=== PATIENT | male | born 1945 | race Caucasian/White ===

== ENCOUNTER → 2016-11-07 | Outpatient (CLI) | payer BC ==
[~2016-11-07] MED LIST: ADVIN25050 INH; ASPEC81 PO; ATOR-26 PO; CALC1TAB9 PO; CLOP1TAB15 PO; CLZ750 PO; CNT PO; INSDGI SQ; METF1000 PO; METO100T7 PO; MRC50 PO; NTRGSL/4 UT; NVLGI SQ; OXGN; OXYC-57 PO; PERFLUTREN LIPID MICROSPHERE (DEFINITY) IV ONE; REGADENOSON 0.4 MG/5 ML SYR ONE; VALS160T60 PO
--- NOTE | 2016-11-08 02:43 | MYOCARDIAL PERFUSION SCAN ---
PRIMARY CARE PHYSICIAN: Dr. Aaron. ORDERING PHYSICIAN: Dr. Siddiqi. TIME: 2119. PROCEDURES: 1. Myocardial perfusion study performed in multiple views/images. 2. Lexiscan stress ECG. INDICATIONS: 1. CAD. 2. Dyspnea with exertion. 3. Edema. CONSENT: Informed written consent was obtained. ELECTROCARDIOGRAM AND VITALS: Baseline ECG demonstrated sinus rhythm with PACs and sinus arrhythmia. Anterior ST/T wave abnormality with deep T-wave inversions. Inferior T-wave inversions. Lateral T-wave inversions. Lexiscan ECG demonstrated no significant ST change. No arrhythmia. No significant pause. No chest pain or shortness of breath reported. There was some lightheadedness and a headache. Maximum heart rate was 91 beats per minute, representing 61% maximum predicted heart rate. Resting blood pressure was 121/72 mmHg. Minimum blood pressure was 97/62 mmHg and maximum was 130/60 mmHg. PROCEDURAL DETAILS: For the stress portion of the study, Lexiscan 0.4 mg was intravenously administered over 10-15 seconds, followed by saline flush. This was followed by 33.1 mCi of technetium-99m Cardiolite at 11:32 a.m. on 11/07/2016. Thirty minutes following the injection, imaging of the heart was performed in multiple projections. For the rest portion of the study, 10.8 mCi of technetium-99m Cardiolite was injected intravenously at 9:50 a.m. on the same day. One hour following the injection, imaging of the heart was performed in the same projections. FINDINGS: Rotating raw imaging demonstrated no significant motion artifact. The heart size appeared normal. No significant lung uptake. Myocardial perfusion demonstrated a small area of mildly reduced uptake in the inferolateral wall from base to mid left ventricle, which was predominantly fixed with normal wall motion, suggesting possible attenuation artifact. Wall motion was normal. Ejection fraction was 67%. There was no significant transient ischemic dilation. IMPRESSION: 1. There were no ischemic changes suggested with this pharmacologic myocardial perfusion study. 2. Small inferolateral fixed defect may be due to attenuation artifact, given normal wall motion. Cannot rule out small infarct. 3. Normal left ventricular systolic function. Ejection fraction 67%. 4. No chest pain. 5. Normal wall motion. 6. Indeterminate and nondiagnostic Lexiscan ECG.
--- NOTE | 2016-11-09 17:35 | ECHOCARDIOGRAM REPORT ---
*NOTICE TO RECEIVING REPUBLICAN AGENCY This information is strictly Confidential and protected under [place] law. [place] law prohibits you from making any further disclosure of this information unless further disclosure is expressly permitted by the written consent of the person to whom it pertains or is authorized by law. A general authorization for the release of medical or other information is not sufficient for this purpose. Hospital accepts no responsibility if the information is made available to any other person, INCLUDING THE PATIENT. Interpretation Summary * Name: REHAN WHITE Study Date: 11/07/2016 12:40 PM BP: 136/60 mmHg * Patient Location: [facility] HR: 80 * : 1945 (M/d/yyy) Gender: Male Height: 63 in * Age: 71 yrs Ethnicity: CA Weight: 245 lb * Ordering Physician: David Siddiqi MD * Referring Physician: David Siddiqi * Performed By: Shalini Gutierres * * Reason For Study: CAD * BSA: 2.1 m2 * -- Conclusions -- * 1. Normal left ventricular size with hyperdynamic systolic function. EF > 75%. No regional wall motion abnormalities. No significant left ventricular hypertrophy. * Diastolic dysfunction, Grade II (pseudonormalization pattern). * 2. No significant valvular abnormalities visualized. * 3. Technically difficult study, enhanced with IV Definity. * 4. No significant change from prior study on 02/22/2012. Procedure Details * A complete two-dimensional transthoracic echocardiogram was performed (2D, M-mode, Doppler and color flow Doppler). * The study was technically difficult. * There were technical limitations due to patient'sbody habitus * A contrast injection of Definity was performed to improve assessment of LV function. * Contrast was injected into an intravenous site in the left arm. * One vial of Definity ultrasound contrast was diluted in normal saline to a total volume of 10 ml. A total of '4' ml of solution was administered during imaging. * Lot # [id number] of Definity utilized for procedure. * Expiration date 09/29. * The attending nurse who injected the contrast agent was SERGE MILLIGAN RN. Left Ventricle * Normal left ventricular size with hyperdynamic systolic function. EF > 75%. No regional wall motion abnormalities. No significant left ventricular hypertrophy. Right Ventricle * The right ventricle is not well visualized. * The right ventricle is grossly normal size. * The right ventricular systolic function is normal as assessed by tricuspid annular plane systolic excursion (TAPSE) (normal >1.5 cm). * The right ventricular systolic function is normal. Atria * Borderline left atrial enlargement. * Right atrium not well visualized. Mitral Valve * The mitral valve is grossly normal. * There is no mitral valve stenosis. * Significant mitral regurgitation is absent. Tricuspid Valve * The tricuspid valve is not well visualized. * There is no tricuspid stenosis. * Significant tricuspid regurgitation is absent. Aortic Valve * The aortic valve is normal in structure and function. * No hemodynamically significant valvular aortic stenosis. * There is no significant aortic regurgitation. Pulmonic Valve * The pulmonary valve is inadequately visualized, but the Doppler data is adequate for interpretation. * There is no pulmonic valvular stenosis. * There is no significant pulmonary regurgitation. Great Vessels * The aortic root is normal size. * Ascending aorta of normal dimension Pericardium/Pleural * There is no pericardial effusion. Great Vessels * Normal inferior vena cava size and collapsability with sniff indicates a normal right atrial pressure of 3 mmHg Left Ventricular Diastolic Function * Diastolic dysfunction, Grade II (pseudonormalization pattern). MMode 2D Measurements and Calculations IVSd 0.97 cm IVSs 1.2 cm LVIDd 4.8 cm LVIDs 2.5 cm LVPWd 0.84 cm LVPWs 1.1 cm IVS/LVPW 1.1 FS 47.5 % EDV(Teich) 106.4 ml ESV(Teich) 22.5 ml EF(Teich) 78.8 % EDV(cubed) 109.1 ml ESV(cubed) 15.8 ml EF(cubed) 85.5 % % IVS thick 28.5 % % LVPW thick 25.3 % LV mass(C)d 147.6 grams LV mass(C)dI 70.0 grams/m\S\2 LV mass(C)s 79.8 grams LV mass(C)sI 37.9 grams/m\S\2 CO(Teich) 6.5 l/min CI(Teich) 3.1 l/min/m\S\2 SV(Teich) 83.9 ml SI(Teich) 39.8 ml/m\S\2 CO(cubed) 7.3 l/min CI(cubed) 3.5 l/min/m\S\2 SV(cubed) 93.3 ml SI(cubed) 44.3 ml/m\S\2 Ao root diam 3.7 cm Ao root area 10.8 cm\S\2 ACS 0.94 cm asc Aorta Diam 3.5 cm LVAd ap4 27.3 cm\S\2 LVLd ap4 8.8 cm EDV(MOD-sp4) 72.0 ml EDV(sp4-el) 101.6 ml LVAs ap4 13.8 cm\S\2 LVLs ap4 6.9 cm LVAd ap2 22.2 cm\S\2 LVLd ap2 8.1 cm LVAs ap2 10.3 cm\S\2 LVLs ap2 5.9 cm Doppler Measurements and Calculations MV E max jacquie 71.6 cm/sec MV A max jacquie 38.8 cm/sec MV E/A 1.8 MV V2 max 86.3 cm/sec MV max PG 3.0 mmHg MV V2 mean 51.0 cm/sec MV mean PG 1.2 mmHg MV V2 VTI 22.8 cm MV dec time 0.20 sec Ao V2 max 138.1 cm/sec Ao max PG 7.6 mmHg Ao max PG (full) 3.6 mmHg Ao V2 mean 88.2 cm/sec Ao mean PG 3.7 mmHg Ao mean PG (full) 1.5 mmHg Ao V2 VTI 27.6 cm LV V1 max PG 4.1 mmHg LV V1 mean PG 2.2 mmHg LV V1 max 100.8 cm/sec LV V1 mean 67.8 cm/sec LV V1 VTI 22.7 cm SV(Ao) 298.8 ml SI(Ao) 141.8 ml/m\S\2 TV E max jacquie 55.5 cm/sec PA V2 max 75.0 cm/sec PA max PG 2.3 mmHg
== END | disposition home or self-care (01) ==
LOC: C.NUCL 08:54
PROVIDERS: ATTEND Internal Medicine Cardiovascular Disease
DX: I25.10 Atherosclerotic heart disease of native coronary artery without angina pectoris (principal); R06.09 Other forms of dyspnea; R60.9 Edema, unspecified; E78.5 Hyperlipidemia, unspecified; I10 Essential (primary) hypertension

== ENCOUNTER → 2016-12-04 | Outpatient (CLI) | payer BC ==
[~2016-12-04] MED LIST changes: -PERFLUTREN LIPID MICROSPHERE (DEFINITY) IV ONE; -REGADENOSON 0.4 MG/5 ML SYR ONE
[2016-12-04 14:41] LABS: HEMATOCRIT 43.6 % (42-52)
[2016-12-04 14:56] LABS: ESTIMATED AVERAGE GLUCOSE 163 mg/dl; HA1C FLAG Normal (Normal)
[2016-12-04 15:01] LABS: THYROID STIMULATING HORMONE 4.18 uIu/ml (0.300-4.500)
--- NOTE | 2016-12-10 13:46 | CODING QUERY MEDICAL NECESSITY ---
SUPPORTING DIAGNOSIS NEEDED A supporting diagnosis is required for the test/procedure performed on this patient in order for us to be reimbursed by the patient's insurance. Please provide a supporting diagnosis for the following test/procedure listed below next to the test name along with your signature. *If there is no additional diagnosis for this patient that would support the following test/procedure please document that below next to the test/procedure. Test(s)/Procedure(s) that require a supporting diagnosis: DOS 12/04 * Vitamin D DIAGNOSIS: * Vitamin B12 DIAGNOSIS: Provider Signature: Date: Thank you Adelaida Huber Health Information Management Once completed, please kindly fax back to [phone] For questions please call [phone]
== END | disposition home or self-care (01) ==
LOC: C.RAD1850 12:43
PROVIDERS: ATTEND Internal Medicine Endocrinology, Diabetes & Metabolism
DX: E11.9 Type 2 diabetes mellitus without complications (principal); M79.1 Myalgia; E53.8 Deficiency of other specified B group vitamins

== ENCOUNTER → 2016-12-05 | Outpatient (CLI) | payer BC ==
--- NOTE | 2016-12-05 10:39 | DIAGNOSTIC IMAGING REPORT ---
CHEST 2 VIEWS ROUTINE CLINICAL HISTORY: R05 [id number] dyspnea COMPARISON STUDY: 09/30/2016 FINDINGS: Mild cardia megaly. Pulmonary vascular congestion. Diaphragms are somewhat flattened.] Left lateral costophrenic angle. IMPRESSION: Pulmonary vascular congestion Electronically signed by: Ben Calix M.D. 12/05/2016 10:38 AM Dictated Date/Time: 12/05/2016 10:37 AM
== END | disposition home or self-care (01) ==
LOC: C.RAD1850 10:29
PROVIDERS: ATTEND Internal Medicine Infectious Disease
DX: R05 Cough (principal)

== ENCOUNTER → 2016-12-06 | Outpatient (CLI) | payer BC ==
[2016-12-06 11:19] LABS: MANUAL MICROSCOPIC REQUIRED? NO; REVIEW REQ? NO; URINE APPEARANCE CLEAR (CLEAR); URINE BILIRUBIN NEG (NEG); URINE COLOR DK YELLOW; URINE NITRITE NEG (NEG); URINE PH 6.5 (4.5-7.5); URINE SPECIFIC GRAVITY 1.025 (1.000-1.030); UROBILINOGEN NEG (NEG)
== END | disposition home or self-care (01) ==
LOC: C.LAB1850 10:08
PROVIDERS: ATTEND Internal Medicine Infectious Disease
DX: R35.0 Frequency of micturition (principal); R39.15 Urgency of urination

== ENCOUNTER → 2017-01-23 | Outpatient (CLI) | payer BC ==
[~2017-01-23] MED LIST changes: +ADVIN25/60 INH; +ALBINS/ INH; +ALBU18002 INH; +ASPI81TA28 PO; +BALS1CAP2 PO; +CLC100 PO; +CPR500 PO; +DVN/160 PO; +INSDGI INJ; +MULT-506 PO; +NITR1CAP16 PO; +NVLGIPEN INJ; +OXGN PO; +OXYBUTYNIN PO; +PLAVIX75 PO; +PRS5 PO
--- NOTE | 2017-01-25 12:52 | POLYSOMNOGRAPH REPORT ---
CLINICAL DATA: 71-year-old male with BMI of 38.16 referred by myself and Chuyita Lechuga for a sleep study. He had a previous sleep study which showed mild sleep apnea. He is significantly obese. He has been on nocturnal oxygen. Because of nocturnal hypoxemia, the patient is referred for repeat sleep study. On the evening of 01/23/2017, a home sleep apnea test was performed using a 365Scores type 3 monitor. RECORDING RESULTS: Total recording time was 9.8 hours. The patient's estimated sleep time and patient monitoring time was 8.1. RESPIRATORY DATA: Severe sleep apnea was documented. The MARLENE was 33.5. There was 1 obstructive apneic episode and 271 hypopneic episodes recorded. The longest respiratory event was 56 seconds. OXIMETRY DATA: Significant nocturnal hypoxemia was seen. Oxygen elodia was 50%. Mean saturation was 79%. Time below 89% was 476 minutes. HEART RATE DATA: Heart rate ranged from 65-85 beats per minute. SNORING DATA: Snoring was recorded throughout the night. IMPRESSION: Severe sleep apnea/hypopnea with an MARLENE of 33.5 with severe nocturnal hypoxemia. RECOMMENDATIONS: The patient should be scheduled for repeat sleep study with CPAP/BiPAP and oxygen. SOFIYA
== END | disposition home or self-care (01) ==
LOC: C.NEUR 09:46
PROVIDERS: ATTEND Physician Assistant Medical
DX: G47.33 Obstructive sleep apnea (adult) (pediatric) (principal); G47.37 Central sleep apnea in conditions classified elsewhere

== ENCOUNTER → 2017-02-04 | Outpatient (CLI) | payer BC ==
--- NOTE | 2017-02-05 06:13 | PAP/PSG TECHNICIAN REPORT ---
[facility] Residency Director Polysomnogram Report Study name: None Report date: 02/05/2017 Study date: 02/04/2017 Referring Physician: Chuyita Lechuga PA-C Name: REHAN COLON Interpreting Physician: Rishabh Aaron M.D. Date of : 1945 Residency Director: Gerda Adams RPS. Sex: Male Age: 71 StudyType: PSG Weight: 252 lbs Height: 71 years, Height 5' 4" Neck Circum: 18 inches BMI: 43.25 Medications: Advair 250-50mcg/act, ASA 81mg, Atorvastatin Calcium 80mg, Balsalazide Disodium 750mg, Clopidogrel Bisulfate 75mg, Lantus SoloStar 100unit/ml, Mercaptopurine 50mg, Metformin 1000mg, Metoprolol 100mg, Nitrostat 0.4mg, Novolog Flex pen 100unit/ml, ProAir HFA 108mcg/act, Toviaz 8mg, Valsartan-HCTZ 160-25mg, Oxygen at night only 2lpm Patient History Study started on room air with 5cwp cpap in room #7. 71 yr old male here tonight for a new titration study . He had a HST that had an MARLENE of 33.5 and severe nocturnal hypoxemia. His neck circ=18 inches. Parameters Monitored NPSG: E1-M2, E2-M1, Fp1-M2, Fp2-M1, F3-M2, F4-M2, F4-M1, C3-M2, C4-M2, C4-M1, O1-M2, O2-M2, O2-M1, T3-M2, T4-M1, P3-M2, P4-M1, CHIN1, CHIN2, HR, EKG, Legs, PFLOW, SNOR, FLOW, CFLOW, Tidal Volume, THOR, ABDO, SpO2, PLTH, CPRESS, ETCO2 Wave, ETCO2, pH Sleep Architecture Sleep Stages Time at Lights Off 10:09:23 PM STAGES Time (min.) TST (%) Time at Lights On 5:50:23 AM Wake 88.5 -- Total Recording Time (TRT) 462.00 min. N1 18.0 5 Total Sleep Period (TSP) 448.5 min. N2 165.5 44 Total Sleep Time (TST) 372.5min. N3 101.0 27 Awake Time 89.0 min. REM 88.0 24 Wake after Sleep Onset 76.0 min. Sleep Efficiency (SE) 81 % Sleep Onset Latency (RYAN) 12.5 min. Number of Stage 1 Shifts None Awakenings 25 Stage Changes 102 Number of REM periods 12 REM 88.0 24 REM Latency 112.0 min. NREM 284.5 76 Body Position Analysis Supine Right Left Side Prone Vertical Total Sleep Time (min.) 461.0 0.0 0.0 0.00 0.0 0.0 Total Sleep Time (%) 100% 0% 0% 0 0% N/A% Total Sleep Time REM (min.) 88.0 0.0 0.0 None 0.0 0.0 Total Sleep Time NREM (min.) 284.5 0.0 0.0 None 0.0 0.0 Intermittent Wake (min.) 88.5 0.0 0.0 None 0.0 0.0 Total Sleep Period (%) 100% None None None None None Arousals Myoclonus (PLM) * Events Count Index Events Count Index Spontaneous 12 2 Events Awake (PLMW) 83 56.3 Respiratory 4 1.0 Events Asleep w/ Arousal (PLMA) 9 1.4 PLM 8 1 Events Asleep w/o Arousal (PLMS) 24 3.9 Snoring 1 0 Total Asleep 33 5.3 Total 25 4 Total 116 15 Respiratory Analysis * CA OA MA CH H RERA Total Count 0 0 0 0 49 0 49 Index 0.0 0.0 0.0 0 7.9 0 7.9 Mean Duration 0.0 0.0 0.0 0.00 22.8 0.0 22.8 Longest Duration 0.0 0.0 0.0 0.00 0.0 0.0 83.7 Respiratory Event Summary Total Supine ~Supine Right Left Prone REM NREM Apneas Count 0 0 N/A N/A N/A N/A 0 0 Index 0.0 0 N/A N/A N/A N/A 0 0 Hypopneas (4% Desat) Count 49 49 N/A N/A N/A N/A 29 20 Index 7.9 7.9 N/A N/A N/A N/A 19.8 4.2 Apneas & All Hypopneas Count 49 49 N/A N/A N/A N/A 29 20 Index 7.9 8 N/A N/A N/A N/A 19.8 4.2 Respiratory Events (Manager Post+All Hyp+RERA) Count 49 49 N/A N/A N/A N/A 29 20 Index 7.9 8 N/A N/A N/A N/A 19.8 4.2 Respiratory Related Arousal Count 4 49 N/A N/A N/A N/A 6 0 Index 1.0 1 N/A N/A N/A N/A 4 0 Snoring Analysis Supine Right Left Prone REM NREM Total Snore duration 3.0 min Snores count 133 N/A N/A N/A 19 114 133 Snore mean duration 1.4 Sec Snores index 21 N/A N/A N/A 13.0 24.0 21.4 TST with snoring (%) 0.8% Desaturation Event Summary: Minimum %SpO2 Event Count Mean/Min/Max Duration(sec.) Desaturation Index % Time In Bed > 90 4 29.8 / 8.0 / 51.3 95.8 0.6 86 - 90 63 19.9 / 6.8 / 58.5 58.5 14.3 81 - 85 86 21.7 / 8.0 / 60.0 18.4 62.3 76 - 80 30 24.0 / 9.0 / 60.0 38.8 10.3 71 - 75 34 17.9 / 8.3 / 38.3 62.3 7.3 66 - 70 18 14.8 / 5.3 / 36.0 57.0 4.2 61 - 65 2 11.8 / 9.3 / 14.3 27.5 1.0 56 - 60 0 N/A 0.0 0.0 51 - 55 0 N/A 0.0 0.0 < 50 0 N/A 0.0 0.0 Total REM NREM Awake <50% 0.0 min. 0.0 min. 0.0 min. 0.0 min. 51 - 60% 0.0 min. 0.0 min. 0.0 min. 0.0 min. 61 - 70% 23.3 min. 20.0 min. 0.1 min. 3.2 min. 71 - 80% 79.2 min. 59.3 min. 15.3 min. 4.6 min. 81 - 90% 345.3 min. 8.5 min. 266.9 min. 69.9 min. 91 - 100% 2.5 min. 0.0 min. 1.3 min. 1.2 min. Average 82 74 83 84 Minimum SpO2 60 60 68 61 Desaturation Event Index 22.6 41.6 18.8 16.3 # Desat. Events below 89% 174 61 89 24 Time(%) with Saturation below 89% 97.2 19.5 61.9 15.8 Time(min.) with Saturation below 89% 437.8 87.8 278.7 71.3 Time (mins) REM (mins) NREM (mins) % of TST SpO2 Below 90% 150 61 N89 99.2 SpO2 Below 88% 51 0 0 98 Heart Rate Analysis Min (bpm) Max (bpm) Average (bpm) Awake 49 155 82 NREM 55 127 74 REM 57 127 75 Overall 55 127 74 Supplemental O2 Values Minimum O2 level: None Value Start Time End Time Residency Director Comments Mr. Colon slept in the supine position with the head of his bed slightly elevated. No cardiac arrhythmia or PLM's noted. No bruxism noted. CPAP was initiated at +5 CMH2O and up-titrated to an optimal level of +14 CMH2O and 4 lpm oxygen. Started at 4:58am with 1 lpm oxygen. Oxygen saturations below 89% for 111.1minutes, AHI on 14cwp was 6.4 for 120 minutes. A medium Simplus full face mask by Delia was used during titration He used the restroom once during the night. He stated that he slept well. The final report will be interpreted and signed by a sleep physician. The completed physician report will then be placed in the patient medical record Therapy Event: Therapy (cm H20) 5 6 8 10 12 14 Total Time at Pressure (min.) 24.4 101.6 12.3 11.4 137.8 173.6 TST at Pressure (min.) 11.9 86.1 11.3 9.2 93.0 161.0 # Periods 1 1 1 1 1 1 Sleep Onset (min.) 12.5 0.0 0.0 0.0 0.4 0.1 REM Onset (min.) N/A 100.1 0.0 0.0 0.9 19.1 Sleep Efficiency % 48 84 91 81 67 92 Wakefulness (%) 51.2 15.3 8.1 18.9 32.5 7.3 Wakefulness (min.) 12.5 15.5 1.0 2.1 44.8 12.6 NREM 1 (%) 12.3 3.0 4.1 8.8 1.8 4.6 NREM 1 (min.) 3.0 3.0 0.5 1.0 2.5 8.0 NREM 2 (%) 36.5 49.8 16.3 17.6 31.2 34.0 NREM 2 (min.) 8.9 50.6 2.0 2.0 43.0 59.0 NREM 3 (%) 0.0 30.5 0.0 0.0 27.2 18.7 NREM 3 (min.) 0.0 31.0 0.0 0.0 37.5 32.5 REM (%) 0.0 1.5 71.5 54.7 7.3 35.4 REM (min.) 0.0 1.5 8.8 6.2 10.0 61.5 # Arousals 1 6 0 3 5 10 Arousal Index 5.0 4.2 0.0 19.5 3.2 3.7 # Snore 7 9 2 8 63 44 Snore Index 35.2 6.3 10.6 52.1 40.6 16.4 AHI 15.1 4.9 42.5 39.1 6.5 5.6 AHI Supine 15.1 4.9 42.5 39.1 6.5 5.6 AHI Non-Supine N/A N/A N/A N/A N/A N/A NREM AHI 15.1 3.5 24.0 20.0 2.9 3.6 REM AHI N/A 80.3 47.8 48.2 36.0 8.8 RDI 15.1 4.9 42.5 39.1 6.5 5.6 # Obstructive 0 0 0 0 0 0 # Central Ap 0 0 0 0 0 0 # Mixed 0 0 0 0 0 0 # Hypopneas 3 7 8 6 10 15 RERAS 0 0 0 0 0 0 Total Respiratory Events 3 7 8 6 10 15 Time Below SpO2 89.00% (min.) 11.9 84.7 11.1 9.2 92.6 157.0 Mean NREM SpO2 (%) 84 84 81 80 83 83 Mean REM SpO2 (%) N/A 75 72 74 73 75 Mean Sleep SpO2 (%) 84 83 74 76 82 80 Min NREM SpO2 (%) 79 77 76 68 72 72 Min REM SpO2 (%) N/A 65 60 64 64 62 Position Supine (min.) 11.9 86.1 11.3 9.2 93.0 161.0 Position Non-supine (min.) 0.0 0.0 0.0 0.0 0.0 0.0 LM Index Sleep 5.0 7.0 5.3 6.5 1.9 6.3 LM Index NREM 5.0 7.1 0.0 0.0 2.2 4.8 LM Index REM N/A 0.0 6.8 9.6 0.0 8.8 Mean Heart Rate (bpm) 73 75 80 78 76 72 Min Heart Rate (bpm) 68 66 57 61 62 55
--- NOTE | 2017-02-05 08:38 | POLYSOMNOGRAPH REPORT ---
CLINICAL DATA: A 71-year-old male with BMI of 44.25, who is referred by Chuyita Lechuga for a CPAP titration study. The patient had a home sleep apnea test which showed severe sleep apnea with severe nocturnal hypoxemia. SLEEP ARCHITECTURE: Total sleep period was 448.5 minutes. Total sleep time was 372.5 minutes divided between 284.5 minutes of non-REM sleep and 88 minutes of REM sleep. Sleep onset latency was 12.5 minutes. REM latency was 112 minutes. Sleep efficiency was 81%. Wake after sleep onset was 76 minutes. Sleep consisted of stage N1 5%, N2 44%, N3 27%, and REM 24%. AROUSAL DATA: 25 arousals were recorded for an index of 4 per hour. PLM DATA: 33 limb movements during sleep were noted for an index of 5.3 with arousals index of 1.4 per hour. RESPIRATORY DATA: The AHI was 7.9. There were 47 hypopneic episodes. The mean duration of hypopnea was 22.8 seconds. OXIMETRY DATA: Severe hypoxemia was seen. Oxygen elodia was 68% during REM. The mean saturation was 82%. EKG: Heart rates ranged from 50-127 beats per minute. No arrhythmias were noted. SODA JERKER'S COMMENTS: The patient slept supine with the head of his bed slightly elevated. A medium Simplus full face mask by Thomas was used. The patient was started on CPAP of 5 cm of water pressure and was titrated up to an optimal level of 14 cm of water pressure, oxygen 4 liters per minute. At his final pressure setting, the patient slept for 161 minutes with an AHI of 5.6. IMPRESSION: Severe obstructive sleep apnea/hypopnea with severe nocturnal hypoxemia corrected with CPAP 14 cm of water pressure, 4 liters of oxygen using a medium Simplus full face mask by Thomas. RECOMMENDATIONS: The patient should be started on the above noted treatment regimen and seen back in followup within 90 days to document efficacy and compliance. BRIGIDAD
--- NOTE | 2017-02-11 15:57 | POLYSOMNOGRAPH REPORT ---
CLINICAL DATA: A 71-year-old male with BMI of 43.25 referred by Chuyita Lechuga and myself for treatment of sleep apnea. He had a home sleep apnea test which showed an RDI of 32.5 with severe nocturnal hypoxemia. SLEEP ARCHITECTURE: Total sleep period was 448.5 minutes. Total sleep time was 372.5 minutes divided between 284.5 minutes of non-REM sleep and 88 minutes of REM sleep. Sleep onset latency was 12.5 minutes. REM latency was 112 minutes. Sleep efficiency was 81%. Wake after sleep onset was 76 minutes. Sleep consisted of stage N1 5%, N2 44%, N3 27%, REM 24%. AROUSAL DATA: Twenty five arousals were recorded for an index of 4 per hour. PLM DATA: Thirty three limb movements during sleep were noted for an index of 5.3 per hour with arousal index of 1.4 per hour. RESPIRATORY DATA: The AHI was 7.9. There were 49 hypopneic episodes. The mean duration of hypopnea was 22.8 seconds. OXIMETRY DATA: Nocturnal hypoxemia was seen. Oxygen elodia was 60%. Mean saturation was 82%. Time below 88% was 51 minutes. ELECTROCARDIOGRAM: Heart rates ranged from 55-127 beats per minute. No arrhythmias were noted. UTILITY LOCATOR'S COMMENTS: The patient slept supine with head of his bed elevated. He used a medium Simplus full face mask by Thomas. He was titrated up to 14 cm of water CPAP. At that level, he slept for 161 minutes with an AHI of 5.6. He continued to have nocturnal hypoxemia and oxygen 1 liter per minute was added just before 5:00 a.m. The patient did have some improvement in his oxygenation with both CPAP and oxygen. IMPRESSION: Severe obstructive sleep apnea with a baseline respiratory event index of 33.5 corrected with CPAP 14 cm of water pressure, medium Simplus full facemask by Thomas. The patient also had significant nocturnal hypoxemia improved with 1 liter per minute of oxygen and eventually titrated up to an optimal level of 4 liters per minute of oxygen with correction of hypoxemia. RECOMMENDATIONS: The patient will be started on CPAP 14 cm of water pressure with a medium Simplus full face mask by Thomas along with 4 liters per minute of oxygen. [facility]
== END | disposition home or self-care (01) ==
LOC: C.NEUR 21:00
PROVIDERS: ATTEND Physician Assistant Medical
DX: G47.33 Obstructive sleep apnea (adult) (pediatric) (principal)

== ENCOUNTER → 2017-02-26 | Outpatient (CLI) | payer BC ==
[2017-02-26 12:26] LABS: BASO % 0.4 %; BASO ABS # 0.02 K/uL (0-0.2); COMPLETE YES; EOS % 2.9 %; HEMATOCRIT 46.5 % (42-52); IG% 0.2 %; LYMPH % 23.9 %; LYMPH ABS # 1.23 K/uL (1.2-3.4); MEAN CELL VOLUME 95.1 fL (80-100); MEAN CORPUSCULAR HEMOGLOBIN 30.3 pg (25-34); MEAN CORPUSCULAR HGB CONC 31.8 g/dl (32-36); MEAN PLATELET VOLUME 10.7 fL (7.4-10.4); MONO % 10.5 %; NEUT % 62.1 %; PLATELET COUNT 204 K/uL (130-400); RED BLOOD COUNT 4.89 M/uL (4.7-6.1); WHITE BLOOD COUNT 5.14 K/uL (4.8-10.8)
[2017-02-26 12:56] LABS: ESTIMATED AVERAGE GLUCOSE 154 mg/dl; HA1C FLAG Normal (Normal)
[2017-02-26 13:18] LABS: ALB/GLOB RATIO 1.1 (0.9-2); ALT/SGPT 38 U/L (12-78); AST/SGOT 21 U/L (15-37); BLOOD UREA NITROGEN 21 mg/dl (7-18); BUN/CREATININE RATIO 24.8 (10-20); CALCIUM 9.1 mg/dl (8.5-10.1); CARBON DIOXIDE 34 mmol/L (21-32); CHLORIDE 103 mmol/L (98-107); CREATININE 0.86 mg/dl (0.60-1.40); GLUCOSE 79 mg/dl (70-99); POTASSIUM 3.9 mmol/L (3.5-5.1); SODIUM 142 mmol/L (136-145)
[2017-02-26 13:30] LABS: ALKALINE PHOSPHATASE 54 U/L (45-117); CHOLESTEROL 116 mg/dl (0-200); CHOLESTEROL/HDL RATIO 3.4; HDL CHOLESTEROL 34 mg/dl; LDL CHOLESTEROL CALCULATED 50 mg/dl; TRIGLYCERIDES 159 mg/dl (0-150); VERY LOW DENSITY LIPOPROT CALC 32 mg/dl
[2017-02-26 13:39] LABS: RATIO 55.1 mcg/mg (0-30.0)
--- NOTE | 2017-03-04 09:38 | CODING QUERY MEDICAL NECESSITY ---
SUPPORTING DIAGNOSIS NEEDED Dr. Aaron, A supporting diagnosis is required for the test/procedure performed on this patient in order for us to be reimbursed by the patient's insurance. Please provide a supporting diagnosis for the following test/procedure listed below next to the test name along with your signature. *If there is no additional diagnosis for this patient that would support the following test/procedure please document that below next to the test/procedure. Test(s)/Procedure(s) that require a supporting diagnosis: * [id number] PSA DIAGNOSIS: DATE OF SERVICE: 02/26/17 Provider Signature: Date: Thank you Armando Comer [facility] Information Management Once completed, please kindly fax back to [phone] For questions please call [phone]
== END | disposition home or self-care (01) ==
LOC: C.LAB1850 11:19
PROVIDERS: ATTEND Internal Medicine Pulmonary Disease
DX: J45.909 Unspecified asthma, uncomplicated (principal); I10 Essential (primary) hypertension; E11.9 Type 2 diabetes mellitus without complications; G47.33 Obstructive sleep apnea (adult) (pediatric); E78.5 Hyperlipidemia, unspecified; K51.90 Ulcerative colitis, unspecified, without complications; N52.9 Male erectile dysfunction, unspecified; Z12.5 Encounter for screening for malignant neoplasm of prostate

== ENCOUNTER → 2017-05-17 | Outpatient (CLI) | payer BC ==
[~2017-05-17] MED LIST changes: -ADVIN25/60 INH; -ALBINS/ INH; -ALBU18002 INH; -ASPI81TA28 PO; -BALS1CAP2 PO; -CLC100 PO; -CPR500 PO; -DVN/160 PO; -INSDGI INJ; -MULT-506 PO; -NITR1CAP16 PO; -NVLGIPEN INJ; -OXGN PO; -OXYBUTYNIN PO; -PLAVIX75 PO; -PRS5 PO
[2017-05-17 12:52] LABS: BLOOD UREA NITROGEN 25 mg/dl (7-18); BUN/CREATININE RATIO 24.9 (10-20); CALCIUM 9.5 mg/dl (8.5-10.1); CARBON DIOXIDE 35 mmol/L (21-32); CHLORIDE 104 mmol/L (98-107); GLUCOSE 77 mg/dl (70-99); POTASSIUM 3.5 mmol/L (3.5-5.1); SODIUM 145 mmol/L (136-145)
== END | disposition home or self-care (01) ==
LOC: C.LAB1850 11:05
PROVIDERS: ATTEND Internal Medicine Cardiovascular Disease
DX: I50.32 Chronic diastolic (congestive) heart failure (principal); I11.0 Hypertensive heart disease with heart failure; E78.5 Hyperlipidemia, unspecified; I25.10 Atherosclerotic heart disease of native coronary artery without angina pectoris; R06.09 Other forms of dyspnea

== ENCOUNTER → 2017-06-24 | Outpatient (CLI) | payer BC ==
--- NOTE | 2017-06-24 14:59 | DIAGNOSTIC IMAGING REPORT ---
CHEST 2 VIEWS ROUTINE CLINICAL HISTORY: COUGH COMPARISON STUDY: 12/03/2016 FINDINGS: The heart is mildly enlarged. There is no overt failure. There is no focal pulmonary consolidation. There are no pleural effusions. There is mild chronic interstitial thickening.[ IMPRESSION: Mild chronic interstitial thickening. No evidence of overt failure. No evidence of focal pulmonary consolidation Electronically signed by: Negro Griggs M.D. 06/24/2017 2:57 PM Dictated Date/Time: 06/24/2017 2:57 PM
== END | disposition home or self-care (01) ==
LOC: C.RAD1850 14:26
PROVIDERS: ATTEND Physician Assistant Medical
DX: R05 Cough (principal)

== ENCOUNTER → 2017-07-04 | Outpatient (CLI) | payer BC | END | disposition home or self-care (01) | LOC: C.PATHSPEC 17:40 | PROVIDERS: ATTEND Nurse Practitioner Family | DX: R31.0 Gross hematuria (principal) ==

== ENCOUNTER → 2017-07-16 | Outpatient (CLI) | payer BC ==
[~2017-07-16] MED LIST changes: +OPTIRAY 320 IV PRN
--- NOTE | 2017-07-16 11:56 | DIAGNOSTIC IMAGING REPORT ---
ABD/PELVIS COMBO CLINICAL HISTORY: 71 years-old Male presenting with gross hematuria. TECHNIQUE: Multidetector CT of the abdomen and pelvis was performed before and after the administration of intravenous contrast. IV contrast: 119 mL of Optiray 320. A dose lowering technique was used consistent with the principles of ALARA (as low as reasonably achievable). COMPARISON: None. CT DOSE (mGy.cm): The estimated cumulative dose is 2175.56 mGycm. FINDINGS: Technical Instructor Course Developer topogram: Gallstones noted. Lung bases: Minimal subpleural reticulation and nodularity at the lung bases, possibly atelectasis or postinfectious/postinflammatory change. Mosaic attenuation at the lung bases could suggest small airways disease. Slight biatrial enlargement. Coronary artery calcification. No pericardial or pleural effusion. Liver: Borderline hepatic steatosis. Well-defined lesion in the left hepatic lobe, indeterminate but likely hepatic cyst. No other lesion noted. Patent hepatic vasculature. Biliary: No intrahepatic or extrahepatic biliary ductal dilatation. Gallbladder surgically absent. Pancreas: Mild parenchymal atrophy. Spleen: Normal. Adrenal glands: Normal. Kidneys and ureters: Tiny hypodensity at the upper pole left kidney, indeterminate but possibly cyst. Nodular process. Ureters normal. Bladder: Fungating mass arising from the right lateral aspect of the bladder trigone measuring 2.6 x 1.6 cm. The subjacent bladder wall does not demonstrate evangelista nodular penetration at the site. No perivesicular fat stranding. Pelvic organs: Prostate enlargement likely secondary to benign prostatic hyperplasia. Bowel: Diverticulosis of the sigmoid colon. Mild stool burden. Normal appendix. No bowel obstruction. Peritoneal cavity: No free fluid or intraperitoneal gas. Lymph nodes: No enlarged lymph nodes in the abdomen or pelvis. Vasculature: Atherosclerosis of the normal caliber abdominal aorta. IVC patent. Abdominal wall: Diastasis of the rectus abdominis. Midline surgical scar suggested in the supraglottic region. Musculoskeletal: Degenerative changes of the spine. No destructive osseous lesion. IMPRESSION: 1. Fungating bladder mass along the right lateral aspect of the trigone without gross evidence of wall penetration. This is highly concerning for a bladder neoplasm, namely transitional cell carcinoma. Direct visualization by cystoscopy and biopsy is advised. No lymphadenopathy. The report will be called/faxed according to standard departmental protocol. Electronically signed by: Sanya Escudero M.D. 07/16/2017 11:55 AM Dictated Date/Time: 07/16/2017 11:47 AM
== END | disposition home or self-care (01) ==
LOC: C.CTS 10:48
PROVIDERS: ATTEND Nurse Practitioner Family
DX: R31.0 Gross hematuria (principal); N40.0 Benign prostatic hyperplasia without lower urinary tract symptoms

== ENCOUNTER → 2017-07-18 | Outpatient (CLI) | payer BC ==
[~2017-07-18] MED LIST changes: -OPTIRAY 320 IV PRN
[2017-07-18 13:39] LABS: BLOOD UREA NITROGEN 15 mg/dl (7-18); BUN/CREATININE RATIO 19.1 (10-20)
== END | disposition home or self-care (01) ==
LOC: C.LAB 11:43
PROVIDERS: ATTEND Nurse Practitioner Family
DX: R31.0 Gross hematuria (principal)

== ENCOUNTER → 2017-09-03 | Day surgery (SDC) | payer BC ==
[2017-08-21 15:25] VITALS: Ht 162.6 cm; Wt 118.2 kg
[~2017-09-03] VITALS: Ht 162.6 cm; Wt 118.2 kg
[~2017-09-03] MED LIST changes: +ADVIN25/60 INH; -ADVIN25050 INH; +ALBINS/ INH; +ALBU18002 INH; -ASPEC81 PO; +ASPI81TA28 PO; +BALS1CAP2 PO; -CLOP1TAB15 PO; -CLZ750 PO; -CNT PO; +CPR500 PO; +DVN/160 PO; +INSDGI INJ; -INSDGI SQ; +LIDOCAINE HCL 2% 2 ML VIAL (20MG/ML) ONE; +MULT-506 PO; -NVLGI SQ; +NVLGIPEN INJ; -OXGN; +OXGN PO; +OXYBUTYNIN PO; -OXYC-57 PO; +PLAVIX75 PO; +PROPOFOL IV EMULSION 10 MG/ML 20 ML VIAL IV ONE; +PRS5 PO; +SODIUM CHLORIDE 0.9% 500ML 500 ML IV ONE; -VALS160T60 PO
[2017-09-03 09:35] VITALS: TEMP 36.4
--- NOTE | 2017-09-03 10:25 | Endo History and Physical ---
History & Physical Date of Service: Sep 03, 2017. Chief Complaint: screening,history of diverticulitis Referring Physician: Dr. Rishabh Aaron History of Present Illness 71 yo CM who presents for screening colonoscopy. Past Medical History Diabetes, Asthma, Gastrointestinal Disorder, High Cholesterol, Heart Disease, Hypertension, COPD, NV Past Surgical History Hx Cardiac Surgery: No (HEART CATH X1 STENT) Hx Internal Defibrillator: No Hx Pacemaker: No Hx Abdominal Surgery: Yes (UMBILICAL HERNIA) Hx of Implantable Prosthesis: No Hx Post-Op Nausea and Vomiting: No Hx Cancer Surgery: Yes (MOHS ON NOSE) Hx Thoracic Surgery: No Hx Orthopedic: Yes (ORIF RIGHT FOOT, RT RCR) Hx Urinary Tract Surgery: Yes (TURBT) Family History None Social History Smoking Status: Former Smoker Hx Substance Use: No Hx Alcohol Use: No Allergies Coded Allergies: Clarithromycin (Verified Allergy, Mild, RASH, 08/21/17) Current Medications Reported Home Medications Medications Dose Route/Sig Max Daily Dose Days Date Category Dose Instructions Finasteride 5 Mg Tab 5 Mg PO HS 09/03/17 Reported Plavix (Clopidogrel Bisulfate) 75 Mg Tab 1 Tab PO QPM 08/21/17 Reported Diovan (Valsartan) 160 Mg Tab 160 Mg PO QPM 08/02/17 Reported Proair Respiclick (Albuterol Sulfate) 108 Mcg/Act Aer 2 Puffs INH PRN 08/02/17 Reported Novolog Flexpen (Insulin Aspart) 100 Units/Ml Inj 20-25 Units INJ TIDM 08/02/17 Reported Lantus (Insulin Glargine) 100 Unit/Ml Inj 60 Units INJ HS 08/02/17 Reported Multivitamin (Multivitamins) Tab 1 Tab PO QAM 08/02/17 Reported Colazal (Balsalazide Disodium) 750 Mg Cap 3 Tab PO TID 08/02/17 Reported Aspirin Ec (Aspirin) 81 Mg Tab 81 Mg PO HS 08/02/17 Reported Proventil 0.083% 2.5MG/3ML (Albuterol Sulf) 2.5 Mg/3 Ml Nebu 2.5 Mg INH Q6H PRN 08/02/17 Reported Advair Diskus 250/50 60 Dose (Fluticasone Prop/Salmeterol) 1 Ea Aerp 1 Puff INH BID 08/02/17 Reported Oxygen Gas 4 Liters PO HS 06/13/16 Reported USES WITH CPAP HS Citracal + D3 Maximum (Calcium Citrate-Vitamin D) 1 Tab Tab 1 Tab PO QAM 06/13/16 Reported Mercaptopurine 50 Mg Tab 1.5 Tab PO QAM 06/13/16 Reported Lipitor (Atorvastatin Calcium) 80 Mg Tab 80 Mg PO HS 07/22/15 Reported Nitrostat (Nitroglycerin) 0.4 Mg Tab 0.4 Mg UT PRN 07/28/13 Reported Toprol Xl (Metoprolol Succinate) 100 Mg Tab 100 Mg PO QAM 07/28/13 Reported Glucophage (Metformin Hcl) 1,000 Mg Tab 1,000 Mg PO BID 02/22/12 Reported Vital Signs Weight (Kilograms): 118.18 Height (Feet): 5 Height (Inches): 4 Date Time Temp Pulse Resp B/P (MAP) Pulse Ox O2 Delivery O2 Flow Rate FiO2 09/03/17 09:35 36.4 85 24 155/79 (104) 91 Room Air Physical Exam General Appearance: WD/WN, no apparent distress Respiratory/Chest: Auscultation: breath sounds normal Cardiovascular: Heart Auscultation: RRR Abdomen: Bowel Sounds: normal Inspection & Palpation: soft, non-distended, no tenderness, guarding & rebound Assessment and Plan Assessment: 71 yo CM who presents for screening colonoscopy. Plan: Proceed with colonoscopy.
--- NOTE | 2017-09-03 10:49 | Discharge Instructions ---
Endoscopy Patient Instructions Date / Procedure(s) Performed Sep 03, 2017. Colonoscopy Allergy Information Coded Allergies: Clarithromycin (Verified Allergy, Mild, RASH, 08/21/17) Discharge Date / Findings Sep 03, 2017. Diverticulosis Internal hemorrhoids Medication Instructions Stopped Medication(s): stopped Plavix and ASA "more than one week ago" OK to resume all medications today as prescribed Reported Home Medications Medications Dose Route/Sig Max Daily Dose Days Date Category Dose Instructions Finasteride 5 Mg Tab 5 Mg PO HS 09/03/17 Reported Plavix (Clopidogrel Bisulfate) 75 Mg Tab 1 Tab PO QPM 08/21/17 Reported Diovan (Valsartan) 160 Mg Tab 160 Mg PO QPM 08/02/17 Reported Proair Respiclick (Albuterol Sulfate) 108 Mcg/Act Aer 2 Puffs INH PRN 08/02/17 Reported Novolog Flexpen (Insulin Aspart) 100 Units/Ml Inj 20-25 Units INJ TIDM 08/02/17 Reported Lantus (Insulin Glargine) 100 Unit/Ml Inj 60 Units INJ HS 08/02/17 Reported Multivitamin (Multivitamins) Tab 1 Tab PO QAM 08/02/17 Reported Colazal (Balsalazide Disodium) 750 Mg Cap 3 Tab PO TID 08/02/17 Reported Aspirin Ec (Aspirin) 81 Mg Tab 81 Mg PO HS 08/02/17 Reported Proventil 0.083% 2.5MG/3ML (Albuterol Sulf) 2.5 Mg/3 Ml Nebu 2.5 Mg INH Q6H PRN 08/02/17 Reported Advair Diskus 250/50 60 Dose (Fluticasone Prop/Salmeterol) 1 Ea Aerp 1 Puff INH BID 08/02/17 Reported Oxygen Gas 4 Liters PO HS 06/13/16 Reported USES WITH CPAP HS Citracal + D3 Maximum (Calcium Citrate-Vitamin D) 1 Tab Tab 1 Tab PO QAM 06/13/16 Reported Mercaptopurine 50 Mg Tab 1.5 Tab PO QAM 06/13/16 Reported Lipitor (Atorvastatin Calcium) 80 Mg Tab 80 Mg PO HS 07/22/15 Reported Nitrostat (Nitroglycerin) 0.4 Mg Tab 0.4 Mg UT PRN 07/28/13 Reported Toprol Xl (Metoprolol Succinate) 100 Mg Tab 100 Mg PO QAM 07/28/13 Reported Glucophage (Metformin Hcl) 1,000 Mg Tab 1,000 Mg PO BID 02/22/12 Reported Provider Instructions Activity Restrictions - No exercising or heavy lifting for 24 hours. - Do not drink alcohol the day of the procedure. - Do not drive a car or operate machinery until the day after the procedure. - Do not make any important decisions or sign important papers in 24 hours after the procedure. Following Day: - Return to full activity which may include returning to work/school. Diet Start your diet with liquids and light foods (jello, soup, juice, toast). Then eat your usual diet if not nauseated. Treatment For Common After Affects For mild abdominal pain, bloating, or excessive gas: - Rest - Eat lightly - Lie on right side Follow-Up Information Follow-up with Dr. Rishabh Aaron as scheduled Anesthesia Information What You Should Know You have had a procedure that required some medicine to reduce anxiety and discomfort. This treatment is called moderate sedation. After receiving the treatment, you may be sleepy, but you will be able to breathe on your own. The effects of the treatment may last for several hours. Follow these instructions along with Activity/Diet recommendations noted above: * Do NOT do anything where dizziness or clumsiness would be dangerous. * Rest quietly at home today, then you can be up and about tomorrow. * Have a responsible person stay with you the rest of today. * You may have had an I.V. today. If so, you may take the dressing off later today. Recommendations Call your doctor if: * Trouble breathing * Continuous vomiting for more than 24 hours * Temperature above 101 degrees * Severe abdominal pain or bloating * Pain not relieved by pain medicine ordered * There is increased drainage or redness from any incision * A large amount of rectal bleeding greater than 2-3 tablespoons. (If you had a polyp/s removed or have hemorrhoids, a small amount of blood - from the rectum is to be expected.) * You have any unanswered questions or concerns. IN THE EVENT OF A SERIOUS EMERGENCY, GO TO THE NEAREST EMERGENCY ROOM Your discharge instructions were prepared by provider Greg Osborne. Patient Instructions Signature Page Cristi Colon Patient (or Guardian) Signature/Date: I have read and understand the instructions given to me by my caregivers. Caregiver/RN/Doctor Signature/Date: The above-named patient and/or guardian has received patient instructions on this date. + Original Patient Signature Page (only) stays with chart. Please make copy for patient.
--- NOTE | 2017-09-03 10:53 | GI REPORT ---
Procedure Date: 09/03/2017 9:59 AM Procedure: Colonoscopy Indications: Screening for colorectal malignant neoplasm Medicines: Monitored Anesthesia Care Complications: No immediate complications. Estimated Blood Loss: Estimated blood loss: none. Procedure: Pre-Anesthesia Assessment: - Prior to the procedure, a History and Physical was performed, and patient medications and allergies were reviewed. The patient's tolerance of previous anesthesia was also reviewed. The risks and benefits of the procedure and the sedation options and risks were discussed with the patient. All questions were answered, and informed consent was obtained. Prior Anticoagulants: The patient last took aspirin 7 days and Plavix (clopidogrel) 7 days prior to the procedure. ASA Grade Assessment: III - A patient with severe systemic disease. After reviewing the risks and benefits, the patient was deemed in satisfactory condition to undergo the procedure. After I obtained informed consent, the scope was passed under direct vision. Throughout the procedure, the patient's blood pressure, pulse, and oxygen saturations were monitored continuously. The On-site loaner was introduced through the anus and advanced to the terminal ileum. The colonoscopy was performed without difficulty. The patient tolerated the procedure well. The quality of the bowel preparation was good. The terminal ileum, ileocecal valve, appendiceal orifice, and rectum were photographed. Findings: The perianal and digital rectal examinations were normal. Multiple small-mouthed diverticula were found in the sigmoid colon. Non-bleeding internal hemorrhoids were found during retroflexion. The hemorrhoids were small. Impression: - Diverticulosis in the sigmoid colon. - Non-bleeding internal hemorrhoids. - No specimens collected. Recommendation: - Resume previous diet. - Continue present medications. - No repeat colonoscopy due to age and the absence of advanced adenomas. - Return to primary care physician as previously scheduled. Greg Osborne DO 09/03/2017 10:53:20 AM This report has been signed electronically. Note Initiated On: 09/03/2017 9:59 AM I attest to the content of the Intraoperative Record and orders documented therein, exceptions below
--- NOTE | 2017-09-03 11:08 | Anesthesiology Progress Note ---
Anesthesia Post Op Note Date & Time Sep 03, 2017 at 11:08 Vital Signs Pain Intensity: 0 Vital Signs Past 12 Hours Date Time Temp Pulse Resp B/P (MAP) Pulse Ox O2 Delivery O2 Flow Rate FiO2 09/03/17 10:55 83 16 122/63 (82) 92 Room Air 09/03/17 09:35 36.4 85 24 155/79 (104) 91 Room Air Notes Mental Status: alert / awake / arousable, participated in evaluation Pt Amnestic to Procedure: Yes Nausea / Vomiting: adequately controlled Pain: adequately controlled Airway Patency, RR, SpO2: stable & adequate BP & HR: stable & adequate Hydration State: stable & adequate Anesthetic Complications: no major complications apparent
[2017-09-03 11:25] VITALS: BP 159/66; PULSE 80; O2SAT 92
== END | disposition home or self-care (01) ==
LOC: C.GI 08:42
PROVIDERS: ATTEND Internal Medicine
DX: Z12.11 Encounter for screening for malignant neoplasm of colon (principal); K57.30 Diverticulosis of large intestine without perforation or abscess without bleeding; K64.8 Other hemorrhoids; E11.9 Type 2 diabetes mellitus without complications; J45.909 Unspecified asthma, uncomplicated; E78.00 Pure hypercholesterolemia, unspecified; I10 Essential (primary) hypertension; J44.9 Chronic obstructive pulmonary disease, unspecified; I25.2 Old myocardial infarction; G47.33 Obstructive sleep apnea (adult) (pediatric); E66.9 Obesity, unspecified; Z68.42 Body mass index [BMI] 45.0-49.9, adult; Z98.890 Other specified postprocedural states; Z90.89 Acquired absence of other organs; Z88.1 Allergy status to other antibiotic agents; Z79.4 Long term (current) use of insulin; Z79.82 Long term (current) use of aspirin; Z79.899 Other long term (current) drug therapy; Z87.891 Personal history of nicotine dependence; Z85.828 Personal history of other malignant neoplasm of skin

== ENCOUNTER → 2017-12-03 | Outpatient (CLI) | payer BC ==
[~2017-12-03] MED LIST changes: -CPR500 PO; -LIDOCAINE HCL 2% 2 ML VIAL (20MG/ML) ONE; -OXYBUTYNIN PO; -PROPOFOL IV EMULSION 10 MG/ML 20 ML VIAL IV ONE; -SODIUM CHLORIDE 0.9% 500ML 500 ML IV ONE
== END | disposition home or self-care (01) ==
LOC: C.PATHSPEC 17:19
PROVIDERS: ATTEND Urology
DX: N30.20 Other chronic cystitis without hematuria (principal); C67.9 Malignant neoplasm of bladder, unspecified

== ENCOUNTER → 2018-02-07 | Outpatient (CLI) | payer BC ==
[2018-02-07 12:38] LABS: BASO % 0.4 %; BASO ABS # 0.02 K/uL (0-0.2); EOS % 3.5 %; EOS ABS # 0.16 K/uL (0-0.5); HEMATOCRIT 45.1 % (42-52); HEMOGLOBIN 14.4 g/dL (14.0-18.0); IG# 0.01 K/uL (0.00-0.02); LYMPH % 21.3 %; LYMPH ABS # 0.98 K/uL (1.2-3.4); MEAN CELL VOLUME 93.8 fL (80-100); MEAN CORPUSCULAR HEMOGLOBIN 29.9 pg (25-34); MEAN CORPUSCULAR HGB CONC 31.9 g/dl (32-36); MEAN PLATELET VOLUME 10.4 fL (7.4-10.4); MONO % 6.3 %; MONO ABS # 0.29 K/uL (0.11-0.59); NEUT % 68.3 %; NEUT ABS # 3.15 K/uL (1.4-6.5); PLATELET COUNT 224 K/uL (130-400); RED CELL DISTRIBUTION WIDTH SD 51.1 fL (36.4-46.3); WHITE BLOOD COUNT 4.61 K/uL (4.8-10.8)
[2018-02-07 12:54] LABS: HEMOGLOBIN A1C 7.8 % (4.5-5.6)
[2018-02-07 12:56] LABS: ALBUMIN 3.6 gm/dl (3.4-5.0); ALT/SGPT 46 U/L (12-78); AST/SGOT 24 U/L (15-37); BLOOD UREA NITROGEN 13 mg/dl (7-18); CALCIUM 9.2 mg/dl (8.5-10.1); CARBON DIOXIDE 33 mmol/L (21-32); CHOLESTEROL 122 mg/dl (0-200); CREATININE 0.98 mg/dl (0.60-1.40); GLUCOSE 129 mg/dl (70-99); POTASSIUM 3.9 mmol/L (3.5-5.1); SODIUM 138 mmol/L (136-145)
[2018-02-07 12:59] LABS: ALKALINE PHOSPHATASE 65 U/L (45-117); LDL CHOLESTEROL CALCULATED 49 mg/dl; TOTAL PROTEIN 7.3 gm/dl (6.4-8.2)
== END | disposition home or self-care (01) ==
LOC: C.LAB1850 10:04
PROVIDERS: ATTEND Internal Medicine Pulmonary Disease
DX: J45.909 Unspecified asthma, uncomplicated (principal); I10 Essential (primary) hypertension; E11.9 Type 2 diabetes mellitus without complications; E78.5 Hyperlipidemia, unspecified; G47.34 Idiopathic sleep related nonobstructive alveolar hypoventilation; K51.90 Ulcerative colitis, unspecified, without complications; D49.4 Neoplasm of unspecified behavior of bladder; G47.33 Obstructive sleep apnea (adult) (pediatric)